=== PATIENT | male | born 1985 | race Caucasian/White ===

== ENCOUNTER 2020-08-07 11:19 | Emergency (ER) | payer SELFPAY ==
[2020-08-07 11:37] VITALS: BP 111/76; PULSE 74; RESP 18; TEMP 36.6; O2SAT 100; BMI 20.2
--- NOTE | 2020-08-07 11:58 | ED.URI ---
HPI - URI/Sore Throat General Chief Complaint: Upper Respiratory Symptoms Stated Complaint: covid sx Time Seen by Provider: 08/07/20 11:39 Source: patient Mode of arrival: ambulatory Limitations: no limitations History of Present Illness HPI Narrative: 35 y/o healthy male presenting with mild nasal congestion and body aches that started yesterday. He was out in the rain yesterday and thinks he just has a minor cold. His employer is requesting evaluation and COVID testing. He denies known exposure. He denies sinus pressure/pain, fever, chills, N/V/D, SOB, or chest pain. No cough. MD elicited complaint: nasal congestion Onset (ago): day(s) (1) Consistency: constant Severity: mild Description of mucous: clear and watery Able to tolerate fluids by mouth: Yes Exacerbating factors: nothing Relieving factors: OTC cold medicine Associated symptoms: myalgias and nasal congestion Treatments prior to arrival: none Related Data Allergies Allergy/AdvReac Type Severity Reaction Status Date / Time No Known Allergies Allergy Verified 08/07/20 11:41 Review of Systems Review of Systems: Constitutional: No Fever, No Chills ENT/Mouth: No sore throat, + Rhinorrhea, No Swallowing Difficulty Cardiovascular: No Chest Pain, No SOB Respiratory: No Cough, No Sputum Gastrointestinal: No Nausea, No Vomiting, No Diarrhea, No abdominal Pain Musculoskeletal: No joint pain, + Myalgias Skin: No Skin Lesions, No rash Neuro: No Weakness, No Numbness, No Dizziness, No Headache PMFSH Past Medical History Attestation statement: The following information was validated with the patient. Medical History (Updated 08/07/20 @ 11:58 by JOE Davis) Migraine Social History Social History Advance Directives: No Advance Directives Information Provided: No Physical Exam Vital Signs: Vital Signs: Last Vital Signs Temp 98 F 08/07/20 11:37 Pulse 74 08/07/20 11:37 Resp 18 08/07/20 11:37 BP 111/76 08/07/20 11:37 Pulse Ox 100 08/07/20 11:37 Body Mass Index 20.2 Appearance: Alert. Oriented X3. No acute distress. ENT: Pharynx normal. Neck: Normal inspection. Neck supple. CVS: Normal heart rate and rhythm. Pulses normal. Respiratory: No respiratory distress. Breath sounds normal. Abdomen: Soft and nontender. +BS x4 Neuro: Oriented X 3. Non-focal Course Course Course Narrative: 35 y/o with mild URI symptoms. Vitals are normal and appears well. Given active symptoms will check for COVID, flu, and RSV. Stable for discharge. Will contact him this afternoon with the results. He was counseled and all questions were answered. MDM - URI/Sore Throat Differential Diagnosis Differential diagnosis: Likely upper respiratory infection, croup, otitis media, sinusitis, viral infection, bronchitis, influenza and pharyngitis Critical Care Time Critical Care Time Critical Care Time: No Discharge Plan Discharge Clinical Impression: Upper respiratory infection Qualifiers: URI type: unspecified URI Qualified Code(s): J06.9 - Acute upper respiratory infection, unspecified Patient Disposition: Home, Self-Care Instructions: Cold Symptoms (ED) Additional Instructions: You were tested for COVID-19, Influenza and RSV today. We will call you with the results this afternoon. Continue to take over the counter cold/flu medications as needed for your symptoms. Recommend over the counter Nasonex or Flonase for nasal congestion. Rest, stay hydrated. Take Motrin and/or Tylenol as needed for fever or muscle aches. Follow up with your doctor next week. If your symptoms worsen or if you develop difficulty breathing or chest pain come back to the ER for further evaluation. Stand Alone Forms: Work/School Release
[2020-08-07 12:56] LABS: Influenza A PCR NEGATIVE (Negative); Influenza B PCR NEGATIVE (Negative); Resp Syncy Virus RNA Qual PCR NEGATIVE (Negative); SARS COV2 PCR INHOUSE NEGATIVE (Negative)
== END 2020-08-07 12:06 | disposition home or self-care (01) ==
PROVIDERS: Physician Assistant; Emergency Provider Emergency Medicine Emergency Medical Services
DX: J06.9 Acute upper respiratory infection, unspecified (principal); M79.10 Myalgia, unspecified site; Z20.828 Contact with and (suspected) exposure to other viral communicable diseases
CPT/HCPCS: 0241U; 99283